=== PATIENT | female | born 1965 | race Caucasian/White ===

== ENCOUNTER 2017-11-07 15:04 | Outpatient (CLI) | payer OTHER ==
--- NOTE | 2017-11-07 17:15 | MRI ---
CERVICAL SPINE MRI WITH AND WITHOUT CONTRAST: Clinical history: Cervical spine radiculopathy, chronic neck pain. FINDINGS: There is multilevel susceptibility spanning the C4 through C7 segments which limits visualization of this region. There is no high grade central canal stenosis at C1-2 or C2-3 levels. C3-4: There is mild central canal stenosis with ventral cord effacement. There is moderate biforamina l stenosis on the basis of broad based disc osteophyte. C4-5: There is no high grade central canal stenosis. There is minimal left foraminal narrowing on the basis of the uncinate process hypertrophy. No high grade right femoral stenosis. C5-6: No high grade central canal stenosis. There is minimal effacement of the right neural foramen b ased on uncinate process hypertrophy. No significant left foraminal stenosis. C6-7: Mild ventral CSF effacement from osteophyte ridge. There is mild bilateral neural foraminal vishnu rowing. C7-T1: No high grade central canal or foraminal stenosis. There is no obvious intrinsic intramedullary signal abnormality. No pathologic intramedullary enhance ment within the visualized cervical spinal cord. The cord is obscured at the C4-[address] level due to artifa ct with precludes assessment of the region. There is a partially empty sella. Retention cyst formation seen in the sphenoid sinus. IMPRESSION: Limited evaluation due to prominent susceptibility from multilevel anterior metallic fusion. There is multilevel degenerative change, most pronounced at the C3-4 level with broad based disc osteophyte p roducing ventral CSF and ventral cord effacement. There is moderate bilateral foraminal stenosis. POS: [facility]
== END 2017-11-07 15:05 | disposition home or self-care (01) ==
LOC: SCSMRI 15:04
PROVIDERS: ATTEND Neurological Surgery
DX: M47.22 Other spondylosis with radiculopathy, cervical region (principal); M99.51 Intervertebral disc stenosis of neural canal of cervical region
CPT/HCPCS: 72156

== ENCOUNTER 2018-03-21 07:39 | Outpatient (CLI) | payer OTHER ==
--- NOTE | 2018-03-21 15:05 | NM ---
GASTRIC EMPTYING EXAMINATION: Date: 03-21-18 Comparison: None. History: Gastroesophageal reflux disease without esophagitis, evaluate gastric emptying. Technique: The patient ingested 2 mCi Technetium 99M labelled sulfur-colloid in a scrambled egg. FINDINGS: The post ingestion imaging demonstrates radiotracer activity within the stomach. At [address] omach is 34% empty, at one hour the stomach is 39% empty, at 2 hours the stomach is 71% empty, at thr ee hours the stomach is 93% empty, and four hours the stomach is 98% empty. The T1/2 is calculated at 79 minutes, within normal limits (defined as 90 minutes or less). IMPRESSION: Normal gastric emptying examination. POS: [facility]
== END 2018-03-21 07:40 | disposition home or self-care (01) ==
LOC: NM 07:39
PROVIDERS: ATTEND Internal Medicine Gastroenterology
DX: K21.9 Gastro-esophageal reflux disease without esophagitis (principal); R19.8 Other specified symptoms and signs involving the digestive system and abdomen
CPT/HCPCS: 78264; A9541